=== PATIENT | female | born 1965 | race Asian ===

== ENCOUNTER 2016-10-24 06:25 | Day surgery (SDC) | payer OTHER ==
[~2016-10-24] VITALS: Ht 161.3 cm; Wt 60.6 kg
[2016-10-24 07:49] VITALS: Ht 161.3 cm; Wt 60.6 kg
[2016-10-24 07:58] VITALS: BP 173/94; PULSE 77; RESP 16
[2016-10-24] MEDS ORDERED: ORTNOV PO (08:03)
[2016-10-24] MEDS ORDERED: [UNRECOGNIZED DRUG - CODE] PO (08:03)
[2016-10-24] MEDS ORDERED: LOSA50TA6 PO (08:03)
[2016-10-24] MEDS ORDERED: MULT-278 PO (08:03)
[2016-10-24] MEDS ORDERED: LEVO25TA53 PO (08:03)
[2016-10-24] MEDS ORDERED: FENTAnyl 50 MCG/ML VIAL ONE (09:04)
[2016-10-24] MEDS ORDERED: MIDAZOLAM 1 MG/ML 2 ML INJ ONE ×2 (09:04)
--- NOTE | 2016-10-24 10:09 | GILP ---
DATE OF PROCEDURE: 10/24/2016 PROCEDURE PERFORMED: Colonoscopy. INDICATION: A 51-year-old female undergoing this procedure for screening colonoscopy. The risk of the procedure, related and unrelated complications, anesthetic risks, all the sedative risks, altern atives discussed, and informed consent was obtained. DESCRIPTION OF PROCEDURE: The patient was brought to the GI lab, sedated with Versed 4 mg, fentanyl 75 mg. After optimal sedation, digital examination done. Sphincter tone was normal. No mass was felt. Scope was passed with much ease into rectum, advanced through sigmoid, descending, transvers e colon all the way into cecum and finally into terminal ileum. Terminal ileum was normal up to 2 f eet. The rest of the colon was normal. While coming out, mucosa thoroughly inspected. Retroversio n done. Small hemorrhoids identified. Clarity and cleanliness was good. IMPRESSION: 1. Normal findings all the way into cecum. 2. Normal terminal ileum. 3. Normal retroversion except for a small hemorrhoid. 4. Clarity and cleanliness was good. PLAN: Stay on high fiber diet. Next colonoscopy after 10 years. Dictated By: TAMRA STEELE/MEAGAN Conf#: [id number] DID#: [id number]
== END 2016-10-24 14:24 | disposition home or self-care (01) ==
LOC: GIL 06:25
PROVIDERS: ATTEND Internal Medicine Gastroenterology
DX: Z12.11 Encounter for screening for malignant neoplasm of colon (principal); E03.9 Hypothyroidism, unspecified; I10 Essential (primary) hypertension; N95.9 Unspecified menopausal and perimenopausal disorder
CPT/HCPCS: 45378; J2250; J3010; Z7610